=== PATIENT | male | born 1985 | race Caucasian/White ===

== ENCOUNTER 2018-06-17 08:13 | Emergency (ER) | payer MEDICAID ==
[~2018-06-17] VITALS: Ht 182.9 cm; Wt 131.8 kg
[2018-06-17 08:19] VITALS: Ht 182.9 cm; Wt 131.8 kg
[2018-06-17 08:46] LABS: BASOPHILS 0.3 % (0-2); EOSINOPHILS 3.4 % (0-7); HEMATOCRIT 48.1 % (42.0-54.0); IMMATURE GRANULOCYTES 0.3 % (0-5); MCH 30.5 pg (26.0-34.0); MCHC 35.3 g/dL (31.0-37.0); MCV 86.2 fL (80.0-100.0); MEAN PLATELET VOLUME 10.7 fL (7.4-10.4); MONOCYTES 7.3 % (2-11); NEUTROPHILS 43.7 % (40-80); PLATELET COUNT 278 10x3/uL (130-400); RBC 5.58 10x6/uL (4.20-6.10); RDW 12.9 % (11.5-14.5); WBC 9.6 10x3/uL (4.8-10.8)
[2018-06-17 09:07] LABS: ALBUMIN 3.8 g/dL (3.4-5.0); ALKALINE PHOSPHATASE 56 U/L (46-116); ALT (SGPT) 50 U/L (10-68); CALC OSMOLALITY 279 mosm/kg (275-300); CARBON DIOXIDE 25.1 mmol/L (21.0-32.0); CHLORIDE - SERUM 103 mmol/L (98-107); SODIUM 139 mmol/L (136-145); UREA NITROGEN 14 mg/dL (7-18); eGFR NON AFRICAN AMERICAN > 90 mL/min (90-120)
[2018-06-17 09:08] LABS: GLUCOSE 113 mg/dL (74-106); TROPONIN-I < 0.017 ng/mL (0.000-0.060)
[2018-06-17 09:28] VITALS: BP 108/69
[2018-06-17] MEDS ORDERED: ATIVAN0.5 MG PO (09:45)
== END 2018-06-17 10:01 | disposition home or self-care (01) ==
LOC: D.ER 08:13
PROVIDERS: Family Medicine
DX: R07.89 Other chest pain (principal); R20.2 Paresthesia of skin; R51 Headache; F17.200 Nicotine dependence, unspecified, uncomplicated